=== PATIENT | male | born 1955 | race Caucasian/White ===

== ENCOUNTER 2022-02-22 22:03 | Inpatient (IN) ==
[2022-02-22] MEDS ORDERED: SODIUM CHLORIDE 1,000 ML IV STA (22:44)
--- NOTE | 2022-02-22 23:14 | ED.PDOC ---
General ED Provider: Dr. JUAN J PEDERSON Chief Complaint: Abdominal Pain Stated Complaint: Patient is a 67 year old male who comes to the ER with a 5 day history of abdominal pain and Diarrhea. He was see at [facility] days ago and here yesterday with full work ups done with no acute findings. States he has been having a lot of diarrhea today and feels weak. Time Seen by Provider: 02/22/22 22:12 Mode of Arrival: Wheelchair Information Source: Patient Primary Care Provider: JESSICA BRODERICK Nursing and Triage Documentation Reviewed and Agree: Yes Does patient meet sepsis criteria?: No System Inflammatory Response Syndrome: Pulse >90 BPM Sepsis Protocol: For patient's 13 years and over: Temp is 96.8 and below OR 101 and greater Pulse >90 BPM Resp >20/minute Acutely Altered Mental Status Are patient's symptoms suggestive of a new infection, such as: -Pneumonia -Skin, Soft Tissue -Endocarditis -UTI -Bone, Joint Infection -Implantable Device -Acute Abdominal Infection -Wound Infection -Meningitis -Blood Stream Catheter Infection -Unknown GI Complaint Exam Vomiting/Diarrhea Complaint/Exam Onset/Duration: 5 days Symptoms Are: Still present Episodes of Diarrhea Over Last 24 Hours: 12 Associated Signs and Symptoms: Reports Abdominal pain and Cramping Non-GI Risk Factors: Denies Vomiting due to neuro or Vomiting due to cardiac Surgical Obstruction Risk Factors: Denies Bilious emesis, Projectile emesis, Colicky abdominal pain or Prior abdominal surgery Related Surgical History: Reports Cholecystectomy and Appendectomy Abdominal Findings: Absent Rebound tenderness, Peritoneal signs or McBurney's Point tender Differential Diagnoses: Viral Gastroenteritis Review of Systems Review Of Systems Constitutional: Reports No symptoms Eyes: Reports No symptoms Ears, Nose, Mouth, Throat: Reports No symptoms Respiratory: Reports No symptoms Cardiac: Reports No symptoms GI: Reports Abdominal pain and Diarrhea : Reports No symptoms Musculoskeletal: Reports No symptoms Skin: Reports No symptoms Neurological: Reports Anxiety All Other Systems: Reviewed and Negative [facility] Medical History (Updated 02/23/22 @ 01:33 by JUAN J PEDERSON MD) Arthritis Diabetes HTN (hypertension) Family History (Updated 02/23/22 @ 00:59 by JUAN J PEDERSON MD) Other No pertinent family history Social History (Updated 02/23/22 @ 00:59 by JUAN J PEDERSON MD) Smoking and tobacco status: Never smoker Alcohol intake: never Surgical History (Updated 02/23/22 @ 00:58 by JUAN J PEDERSON MD) Hx of appendectomy Hx of cholecystectomy Physical Exam Physical Exam Appearance: Reports Ill-appearing and Obese Ill-appearing: Moderate Pain Distress: Moderate Eyes: Reports STEPHY, EOMI and Conjunctiva clear ENT: Reports Nose normal and Oropharynx normal Neck: Not Examined Respiratory: Reports Airway patent, Breath sounds clear and Breath sounds equal Cardiovascular: Reports RRR, Pulses normal and No rub GI/: Reports Soft and Tender Musculoskeletal: Reports Normal strength, ROM intact and No edema Skin: Reports Warm, Dry and Normal color Neurological: Reports Motor intact, Alert and Oriented Psychiatric: Reports Anxious Interpretation Radiology Interpretation Radiology Interpretation By: Radiologist Radiology Results: No acute changes (1. No evidence of pulmonary artery throm bus. Borderline technical adequacy. The main and first order branching is relatively well visualized. 2. Mild emphysema 3. Pericolonic inflammation suggested in the upper abdomen. 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 Rate: Tachy Rhythm: Sinus Ectopy: None EKG Interpretation Time of EKG #1: 22:39 Rate: Tachy (119) Rhythm: Sinus Ectopy: None [place]: NL ST Segment: Normal Interpretation: non specific T wave abnormalities Physician Notification Case Discussed Physician Notified: Han Time of Notification: 01:43 (Discussed with DR Broderick who stated should be admitted to the hostpitalist ) Critical Care Note Critical Care Note Total Critical Care Time (mins): 30 Course Course Hematology/Chemistry: 02/22/22 23:04 02/22/22 23:04 Orders, Labs, Meds: Lab Review 02/22/22 02/22/22 02/22/22 23:04 23:04 23:04 WBC 8.74 RBC 5.23 Hgb 15.8 Hct 47.3 MCV 90.4 MCH 30.2 MCHC 33.4 RDW Coeff of Daniel 13.3 Plt Count 189 Immature Gran % (Auto) 1.4 Neut % (Auto) 79.8 H Lymph % (Auto) 7.0 L Travis % (Auto) 11.2 H Eos % (Auto) 0.3 Baso % (Auto) 0.3 Neut # (Auto) 7.0 H Lymph # (Auto) 0.6 Travis # (Auto) 1.0 Eos # (Auto) 0.0 Baso # (Auto) 0.0 Immature Gran # (Auto) 0.1 Puncture Site Base Excess O2 Saturation ABG pH ABG pCO2 ABG pO2 ABG HCO3 ABG Total CO2 Trace Test Hemoglobin Oxyhemoglobin Carboxyhemoglobin Total Hemoglobin FiO2 % Sodium 134.3 L Potassium 4.30 Chloride 102.8 Carbon Dioxide 21.0 L Anion Gap 14.80 BUN 13.7 Creatinine 0.83 Estimated GFR (MDRD) 92.00 BUN/Creatinine Ratio 16.50 Glucose 140.7 H Lactic Acid 1.33 Calcium 9.20 Total Bilirubin 1.49 H AST 134.1 H ALT 153.1 H D Alkaline Phosphatase 246.8 H D Total Creatine Kinase 74.8 Total Protein 7.35 Albumin 3.92 Globulin 3.43 Albumin/Globulin Ratio 1.14 Amylase 131.1 H Lipase 959.7 H Procalcitonin D-Dimer Urine Color Urine Clarity Urine pH Ur Specific [place] Urine Protein Urine Glucose (UA) Urine Ketones Urine Blood Urine Nitrite Urine Bilirubin Urine Urobilinogen Ur Leukocyte Esterase Urine Microscopic RBC Urine Microscopic WBC Ur Squamous Epith Cells Hyaline Casts Urine Mucus Stl C. cayetanensis PCR Stool Rotavirus (PCR) Stool Adenovirus (PCR) Stool Astrovirus (PCR) Stool Campylobacter PCR Stl C.difficile Tox PCR Stool Cryptosporidium PCR Stl E.coli Shiga Tox PCR St Sh/Enteroin Ecoli PCR Stl Enterotoxigenic E PCR Stool EPEC (PCR) Stl E. histolytica PCR Stool Giardia Lamblia PCR Stl P. shigelloides PCR Stool Salmonella PCR Stool Sapovirus (PCR) St Y.enterocolitica PCR Stool Vibrio (PCR) Stl Vibrio cholerae PCR Stl Enteroaggr Ecoli PCR Stl Norovirus GI/GII PCR SARS CoV-2 RNA Rapid LOLI 02/22/22 02/22/22 02/22/22 23:04 23:04 23:05 WBC RBC Hgb Hct MCV MCH MCHC RDW Coeff of Daniel Plt Count Immature Gran % (Auto) Neut % (Auto) Lymph % (Auto) Travis % (Auto) Eos % (Auto) Baso % (Auto) Neut # (Auto) Lymph # (Auto) Travis # (Auto) Eos # (Auto) Baso # (Auto) Immature Gran # (Auto) Puncture Site Base Excess O2 Saturation ABG pH ABG pCO2 ABG pO2 ABG HCO3 ABG Total CO2 Trace Test Hemoglobin Oxyhemoglobin Carboxyhemoglobin Total Hemoglobin FiO2 % Sodium Potassium Chloride Carbon Dioxide Anion Gap BUN Creatinine Estimated GFR (MDRD) BUN/Creatinine Ratio Glucose Lactic Acid Calcium Total Bilirubin AST ALT Alkaline Phosphatase Total Creatine Kinase Total Protein Albumin Globulin Albumin/Globulin Ratio Amylase Lipase Procalcitonin 0.42 H D-Dimer 1588.29 H Urine Color Yellow Urine Clarity Clear Urine pH 5.5 Ur Specific [place] 1.025 Urine Protein Negative Urine Glucose (UA) Negative Urine Ketones Negative Urine Blood Negative Urine Nitrite Negative Urine Bilirubin Negative Urine Urobilinogen 0.2 Ur Leukocyte Esterase Trace H Urine Microscopic RBC 0-2 Urine Microscopic WBC 2-5 Ur Squamous Epith Cells 0-2 Hyaline Casts 0-2 Urine Mucus Trace Stl C. cayetanensis PCR Stool Rotavirus (PCR) Stool Adenovirus (PCR) Stool Astrovirus (PCR) Stool Campylobacter PCR Stl C.difficile Tox PCR Stool Cryptosporidium PCR Stl E.coli Shiga Tox PCR St Sh/Enteroin Ecoli PCR Stl Enterotoxigenic E PCR Stool EPEC (PCR) Stl E. histolytica PCR Stool Giardia Lamblia PCR Stl P. shigelloides PCR Stool Salmonella PCR Stool Sapovirus (PCR) St Y.enterocolitica PCR Stool Vibrio (PCR) Stl Vibrio cholerae PCR Stl Enteroaggr Ecoli PCR Stl Norovirus GI/GII PCR SARS CoV-2 RNA Rapid LOLI 02/22/22 02/22/22 02/22/22 23:05 23:10 23:35 WBC RBC Hgb Hct MCV MCH MCHC RDW Coeff of Daniel Plt Count Immature Gran % (Auto) Neut % (Auto) Lymph % (Auto) Travis % (Auto) Eos % (Auto) Baso % (Auto) Neut # (Auto) Lymph # (Auto) Travis # (Auto) Eos # (Auto) Baso # (Auto) Immature Gran # (Auto) Puncture Site [place] Excess -3.7 L O2 Saturation 92.5 L ABG pH 7.42 ABG pCO2 32.0 L ABG pO2 64.0 L ABG HCO3 20.8 L ABG Total CO2 21.8 Trace Test + Hemoglobin 1.1 Oxyhemoglobin 91.4 L Carboxyhemoglobin 1.1 Total Hemoglobin 15.9 FiO2 % 21.0 Sodium Potassium Chloride Carbon Dioxide Anion Gap BUN Creatinine Estimated GFR (MDRD) BUN/Creatinine Ratio Glucose Lactic Acid Calcium Total Bilirubin AST ALT Alkaline Phosphatase Total Creatine Kinase Total Protein Albumin Globulin Albumin/Globulin Ratio Amylase Lipase Procalcitonin D-Dimer Urine Color Urine Clarity Urine pH Ur Specific [place] Urine Protein Urine Glucose (UA) Urine Ketones Urine Blood Urine Nitrite Urine Bilirubin Urine Urobilinogen Ur Leukocyte Esterase Urine Microscopic RBC Urine Microscopic WBC Ur Squamous Epith Cells Hyaline Casts Urine Mucus Stl C. cayetanensis PCR Not detected Stool Rotavirus (PCR) Not detected Stool Adenovirus (PCR) Not detected Stool Astrovirus (PCR) Not detected Stool Campylobacter PCR Not detected Stl C.difficile Tox PCR Not detected Stool Cryptosporidium PCR Not detected Stl E.coli Shiga Tox PCR Not detected St Sh/Enteroin Ecoli PCR Not detected Stl Enterotoxigenic E PCR Not detected Stool EPEC (PCR) Not detected Stl E. histolytica PCR Not detected Stool Giardia Lamblia PCR Not detected Stl P. shigelloides PCR Not detected Stool Salmonella PCR Detected H Stool Sapovirus (PCR) Not detected St Y.enterocolitica PCR Not detected Stool Vibrio (PCR) Not detected Stl Vibrio cholerae PCR Not detected Stl Enteroaggr Ecoli PCR Not detected Stl Norovirus GI/GII PCR Not detected SARS CoV-2 RNA Rapid LOLI Negative 02/23/22 00:27 WBC RBC Hgb Hct MCV MCH MCHC RDW Coeff of Daniel Plt Count Immature Gran % (Auto) Neut % (Auto) Lymph % (Auto) Travis % (Auto) Eos % (Auto) Baso % (Auto) Neut # (Auto) Lymph # (Auto) Travis # (Auto) Eos # (Auto) Baso # (Auto) Immature Gran # (Auto) Puncture Site Base Excess O2 Saturation ABG pH ABG pCO2 ABG pO2 ABG HCO3 ABG Total CO2 Trace Test Hemoglobin Oxyhemoglobin Carboxyhemoglobin Total Hemoglobin FiO2 % Sodium Potassium Chloride Carbon Dioxide Anion Gap BUN Creatinine Estimated GFR (MDRD) BUN/Creatinine Ratio Glucose Lactic Acid Calcium Total Bilirubin AST ALT Alkaline Phosphatase Total Creatine Kinase Total Protein Albumin Globulin Albumin/Globulin Ratio Amylase 116.1 H Lipase 771.4 H Procalcitonin D-Dimer Urine Color Urine Clarity Urine pH Ur Specific [place] Urine Protein Urine Glucose (UA) Urine Ketones Urine Blood Urine Nitrite Urine Bilirubin Urine Urobilinogen Ur Leukocyte Esterase Urine Microscopic RBC Urine Microscopic WBC Ur Squamous Epith Cells Hyaline Casts Urine Mucus Stl C. cayetanensis PCR Stool Rotavirus (PCR) Stool Adenovirus (PCR) Stool Astrovirus (PCR) Stool Campylobacter PCR Stl C.difficile Tox PCR Stool Cryptosporidium PCR Stl E.coli Shiga Tox PCR St Sh/Enteroin Ecoli PCR Stl Enterotoxigenic E PCR Stool EPEC (PCR) Stl E. histolytica PCR Stool Giardia Lamblia PCR Stl P. shigelloides PCR Stool Salmonella PCR Stool Sapovirus (PCR) St Y.enterocolitica PCR Stool Vibrio (PCR) Stl Vibrio cholerae PCR Stl Enteroaggr Ecoli PCR Stl Norovirus GI/GII PCR SARS CoV-2 RNA Rapid LOLI Orders Category Date Time Status ADMIT PATIENT INPATIENT .TO [facility] (MONITORED BED) ADMISSION 02/23/22 01:33 Active ABG DRAW REQUEST Stat CARDIO 02/22/22 22:44 Completed EKG-(ED ONLY) Stat CARDIO 02/22/22 22:46 Completed ACTIVITY .Up ad Ashley CARE 02/23/22 01:36 Active GIVE HS SNACK 2100 CARE 02/23/22 01:37 Active INTAKE & OUTPUT Q8HR CARE 02/23/22 01:33 Active NPO REMINDER: IMAGING ONCE CARE 02/23/22 00:14 Active TELEMETRY MONITORING TELE CARE 02/23/22 01:33 Active VITAL SIGNS Q4HR CARE 02/23/22 01:36 Active CLEAR LIQUID DIET DIETARY 02/23/22 Breakfast Ordered HS SNACK DIETARY 02/23/22 Dinner Ordered SUPPLEMENT: ENLIVE CLEAR DIETARY 02/23/22 Breakfast Ordered ED IV/MEDIPORT/POWERPORT .ONCE EMERGENCY 02/22/22 22:44 Active ABG COOX Stat LAB 02/22/22 23:10 Completed AMYLASE Stat LAB 02/22/22 23:04 Completed AMYLASE Stat LAB 02/23/22 00:27 Completed BLOOD CULTURE (ED ONLY) Stat LAB 02/22/22 23:04 Received CBC W/ AUTO DIFF DAILY@0600 LAB 02/23/22 06:00 Ordered CBC W/ AUTO DIFF DAILY@0600 LAB 02/24/22 06:00 Ordered CBC W/ AUTO DIFF Stat LAB 02/22/22 23:04 Completed COMPREHENSIVE METABOLIC PANEL DAILY@0600 LAB 02/23/22 06:00 Ordered COMPREHENSIVE METABOLIC PANEL DAILY@0600 LAB 02/24/22 06:00 Ordered COMPREHENSIVE METABOLIC PANEL Stat LAB 02/22/22 23:04 Completed CREATINE KINASE Stat LAB 02/22/22 23:04 Completed D-DIMER Stat LAB 02/22/22 23:04 Completed GASTROINTESTINAL PANEL (PCR) Stat LAB 02/22/22 23:05 Completed LACTIC ACID Stat LAB 02/22/22 23:04 Completed LIPASE Stat LAB 02/22/22 23:04 Completed LIPASE Stat LAB 02/23/22 00:27 Completed PROCALCITONIN Stat LAB 02/22/22 23:04 Completed SARS COV-2 RNA RAPID LOLI Stat LAB 02/22/22 23:35 Completed URINALYSIS C & S IF INDICATED Stat LAB 02/22/22 23:05 Completed 0.9 % Sodium Chloride [Saline Flush] MEDS 02/22/22 22:44 Active 1 syr IVF PRN PRN Acetaminophen [Tylenol] MEDS 02/23/22 01:33 Ordered 650 mg PO Q4H PRN Dicyclomine Inj [Bentyl] MEDS 02/22/22 23:38 Discontinued 20 mg IM ONCE STA Enoxaparin Sodium [Lovenox] MEDS 02/23/22 09:00 Ordered 40 mg SUBCUT DAILY Hydromorphone HCl [Dilaudid 1 mg/ml Syringe] MEDS 02/22/22 23:38 Discontinued 1 mg IVP ONCE STA Hydromorphone HCl [Dilaudid 1 mg/ml Syringe] MEDS 02/23/22 01:18 Discontinued 1 mg IVP ONCE STA Hydromorphone HCl [Dilaudid 1 mg/ml Syringe] MEDS 02/23/22 01:33 Ordered 1 mg IVP Q4HR PRN Levofloxacin [Levaquin] MEDS 02/23/22 02:00 Ordered 500 mg PO QDAC Metoclopramide HCl [Reglan] MEDS 02/23/22 02:00 Ordered 5 mg IVP Q6H Ondansetron HCl/Pf [Zofran 4 mg/2 ml] MEDS 02/23/22 01:33 Ordered 4 mg IVP Q6H PRN Prochlorperazine Edisylate [Compazine] MEDS 02/22/22 23:38 Discontinued 10 mg IVP ONCE ONE Ringers Lactated Solution [Lactated Ringers] 1,000 ml MEDS 02/23/22 00:11 Discontinued IV BOLUS Sodium Chloride 0.9% [Sodium Chloride] 1,000 ml MEDS 02/22/22 22:44 Discontinued IV BOLUS RESUSCITATION STATUS Routine OTHERS 02/23/22 01:[address] CHEST PE PROTOCOL Stat RADS 02/23/22 00:11 Completed Medications Generic Name Dose Route Start Last Admin Trade Name Harvinder PRN Reason Stop Dose Admin Acetaminophen 650 mg 02/23/22 01:33 Acetaminophen 325 Mg Tablet PO Q4H PRN Fever and Mild Pain Enoxaparin Sodium 40 mg 02/23/22 09:00 Enoxaparin Sodium 40 Mg/0.4 Ml Syr SUBCUT DAILY TIMOTHY Hydromorphone HCl 1 mg 02/23/22 01:33 Hydromorphone Hcl 1 Mg/Ml Syringe IVP Q4HR PRN Severe Pain Levofloxacin 500 mg 02/23/22 02:00 Levofloxacin 500 Mg Tablet PO 02/26/22 01:59 QDAC TIMOTHY Metoclopramide HCl 5 mg 02/23/22 02:00 Metoclopramide Hcl 10 Mg/2 Ml IVP Q6H TIMOTHY Ondansetron HCl 4 mg 02/23/22 01:33 Ondansetron Hcl/Pf 4 Mg/2 Ml Sdv IVP Q6H PRN Nausea / Vomiting Pantoprazole Sodium 40 mg 02/23/22 09:00 Pantoprazole Sodium 40 Mg Vial IVP DAILY [facility] Sodium Chloride 1 syr 02/22/22 22:44 0.9% Sodium Chloride 10 Ml Disp.Syrin IVF PRN PRN To flush IV Discontinued Medications Generic Name Dose Route Start Last Admin Trade Name Harvinder PRN Reason Stop Dose Admin Dicyclomine HCl 20 mg 02/22/22 23:38 02/22/22 23:42 Dicyclomine Inj 20 Mg/2 Ml Ampul IM 02/22/22 23:39 20 mg ONCE STA Administration Hydromorphone HCl 1 mg 02/22/22 23:38 02/22/22 23:42 Hydromorphone Hcl 1 Mg/Ml Syringe IVP 02/22/22 23:39 1 mg ONCE STA Administration Hydromorphone HCl 1 mg 02/23/22 01:18 02/23/22 01:30 Hydromorphone Hcl 1 Mg/Ml Syringe IVP 02/23/22 01:19 1 mg ONCE STA Administration Sodium Chloride 1,000 mls @ 1,000 mls/hr 02/22/22 22:44 02/22/22 23:06 Sodium Chloride IV 02/22/22 23:43 1,000 mls/hr BOLUS STA Administration Lactated Ringer's 1,000 mls @ 1,000 mls/hr 02/23/22 00:11 02/23/22 00:42 Lactated Ringers IV 02/23/22 01:10 1,000 mls/hr BOLUS STA Administration Prochlorperazine Edisylate 10 mg 02/22/22 23:38 02/22/22 23:42 Prochlorperazine Edisylate 10 Mg/2 Ml Sdv IVP 02/22/22 23:39 10 mg ONCE ONE Administration Vital Signs: Temp Pulse Resp BP Pulse Ox 02/22/22 22:04 99.3 F 117 H 26 H 116/73 94 L Discharge Plan Discharge Patient Disposition: ADMITTED INPATIENT Discharge Problem: Salmonella enteritis Acute pancreatitis Qualifiers: Pancreatitis type: idiopathic Acute pancreatitis complication: no infection or necrosis Qualified Code(s): K85.00 - Idiopathic acute pancreatitis without necrosis or infection Did you review [place] ANESTHESIA ATTENDING?: Not Applicable ED Provider: JUAN J PEDERSON Condition: Fair Physician Progress Note: []
[2022-02-22 23:15] LABS: ABG O2 HGB 91.4 % (95-100); ABG PH 7.42 (7.35-7.45); BEecf -3.7 (-2.0-3.0); COHb 1.1 (0.5-1.5); HCO3 20.8 (21-28); MetHb 1.1 (0-1.5); TCO2 21.8 (19-24); sO2 92.5 % (94-98); tHb 15.9 g/dl (11.7-17.4)
[2022-02-22 23:18] LABS: BASOPHILS % (AUTO) 0.3 % (0.0-3.0); EOSINOPHILS % (AUTO) 0.3 % (0.0-7.0); HEMATOCRIT 47.3 % (42.0-52.0); HEMOGLOBIN 15.8 g/dl (14.0-18.0); IMMATURE GRANULOCYTE # (AUTO) 0.1 (0.0-1.0); IMMATURE GRANULOCYTE % (AUTO) 1.4 % (0.0-5.0); LYMPHOCYTES # (AUTO) 0.6 K/uL (0.60-3.4); MEAN CORPUSCULAR HEMOGLOBIN 30.2 pg (27.0-31.0); MEAN CORPUSCULAR HGB CONC 33.4 (31.8-35.4); MEAN CORPUSCULAR VOLUME 90.4 fl (80.0-94.0); MONOCYTES % (AUTO) 11.2 (0-10); NEUTROPHILS % (AUTO) 79.8 % (42.2-75.2); PLATELET COUNT 189 10^3/uL (140-440); RDW COEFFICIENT OF VARIATION 13.3 % (11.6-14.8); RED BLOOD COUNT 5.23 10^6/ul (4.70-6.10); WHITE BLOOD COUNT 8.74 K/ul (4.2-10.2)
[2022-02-22 23:21] LABS: BILIRUBIN,URINE Negative (NEGATIVE); CLARITY,URINE Clear (CLEAR); COLOR,URINE Yellow (YELLOW); GLUCOSE, URINE (UA) Negative (NEGATIVE); KETONES,URINE Negative (NEGATIVE); LEUKOCYTE ESTERASE ,URINE Trace (NEGATIVE); NITRITE,URINE Negative (NEGATIVE); PH,URINE 5.5 (5-9); PROTEIN,URINE Negative (NEGATIVE); URINE, BLOOD Negative (NEGATIVE); UROBILINOGEN,URINE 0.2 (0.2)
[2022-02-22 23:31] LABS: ALANINE AMINOTRANSFERASE 153.1 U/L (0-50); ALBUMIN 3.92 g/dL (3.5-5.0); ALKALINE PHOSPHATASE 246.8 U/L (56-119); AMYLASE 131.1 U/L (30-110); ASPARTATE AMINO TRANSFERASE 134.1 U/L (17-59); BILIRUBIN,TOTAL 1.49 mg/dL (0.2-1.3); BLOOD UREA NITROGEN 13.7 mg/dL (9-20); CALCIUM 9.2 mg/dL (8.4-10.2); CHLORIDE 102.8 mmol/L (98-107); CREATINE KINASE 74.8 U/L (55-170); CREATININE 0.83 mg/dL (0.60-1.10); GLUCOSE 140.7 mg/dL (74-106); LIPASE 959.7 U/L (23-300); POTASSIUM 4.3 mmol/L (3.5-5.1); SODIUM 134.3 mmol/L (134.5-145); TOTAL PROTEIN 7.35 g/dL (6.3-8.2)
[2022-02-22 23:33] LABS: ADENOVIRUS F40/41 (PCR) NOT DETECTED (NOT DETECT); ASTROVIRUS (PCR) NOT DETECTED (NOT DETECT); CAMPYLOBACTER (PCR) NOT DETECTED (NOT DETECT); CRYPTOSPORIDIUM (PCR) NOT DETECTED (NOT DETECT); CYCLOSPORA CAYETANENSIS (PCR) NOT DETECTED (NOT DETECT); ENTAMOEBA HISTOLYTICA (PCR) NOT DETECTED (NOT DETECT); ENTEROAGGREGATIVE E.COLI (PCR) NOT DETECTED (NOT DETECT); GIARDIA LAMBLIA (PCR) NOT DETECTED (NOT DETECT); HYALINE CASTS, URINE 0-2 (NOT PRESENT); MUCUS,URINE TRACE (NOT PRESENT); NOROVIRUS GI/GII (PCR) NOT DETECTED (NOT DETECT); PLESIOMONAS SHIGELLOIDES (PCR) NOT DETECTED (NOT DETECT); ROTAVIRUS A (PCR) NOT DETECTED (NOT DETECT); SAPOVIRUS (PCR) NOT DETECTED (NOT DETECT); SHIGA-LIKE TOXIN E.COLI (PCR) NOT DETECTED (NOT DETECT); SQUAMOUS EPITHELIAL CELL,UR 0-2 (0-5); URINE RBC, MICROSCOPIC 0-2 (0-2); VIBRIO (PCR) NOT DETECTED (NOT DETECT); VIBRIO CHOLERAE (PCR) NOT DETECTED (NOT DETECT); YERSINIA ENTEROCOLITICA (PCR) NOT DETECTED (NOT DETECT)
[2022-02-22] MEDS ORDERED: COMPAZINE IVP ONE (23:38)
[2022-02-22] MEDS ORDERED: BENTYL IM STA (23:38)
[2022-02-22] MEDS ORDERED: DILAUDID 1 MG/ML SYRINGE IVP STA (23:38)
[2022-02-23] MEDS ORDERED: LACTATED RINGERS 1,000 ML IV STA (00:11)
[2022-02-23 00:31] LABS: AMYLASE 116.1 U/L (30-110); LIPASE 771.4 U/L (23-300)
[2022-02-23 00:40] LABS: C DIFF A/B (PCR) NOT DETECTED (NOT DETECT); SALMONELLA(PCR) DETECTED (NOT DETECT)
--- NOTE | 2022-02-23 01:05 | CT ---
Exam: CT angiography of the chest History: Shortness of breath and elevated D-dimer Technique: 2.[address] of the chest utilizing CT angiography protocol. Multiplanar and m aximum intensity projection reformations were performed. FINDINGS: Borderline technical adequacy for evaluation of pulmonary arteries and aorta secondary to bolus timing. There are no pulmonary artery filling defects. Mild apical emphysema. The lungs are clear otherwise. Granulomatous lymph node calcifications of mediastinum. Coronary artery calcificat ions are present. The aorta is normal. No acute chest wall abnormality. Possible pericolonic infla mmation seen in the upper abdomen. Impression: 1. No evidence of pulmonary artery thrombus. Borderline technical adequacy. The main and first ord er branching is relatively well visualized. 2. Mild emphysema 3. Pericolonic inflammation suggested in the upper abdomen. All CT scans are performed using dose optimization techniques as appropriate to the performed exam an d include at least one of the following: Automated exposure control, adjustment of the mA and/or kV according t o size, and the use of iterative reconstruction technique.
[2022-02-23] MEDS ORDERED: DILAUDID 1 MG/ML SYRINGE IVP STA (01:18)
[2022-02-23] MEDS ORDERED: DILAUDID 1 MG/ML SYRINGE IVP PRN (01:33)
[2022-02-23] MEDS ORDERED: TYLENOL PO PRN (01:33)
[2022-02-23 02:30] VITALS: BMI 41.6
[2022-02-23] MEDS: LEVAQUIN PO SCH ×2 (02:50→05:36)
[2022-02-23] MEDS: REGLAN IVP SCH ×4 (02:50→21:11)
[2022-02-23] MEDS: SODIUM CHLORIDE 1,000 ML IV SCH ×4 (03:39→21:58)
[2022-02-23 05:01] LABS: BASOPHILS % (AUTO) 0.3 % (0.0-3.0); HEMATOCRIT 45.1 % (42.0-52.0); HEMOGLOBIN 14.8 g/dl (14.0-18.0); IMMATURE GRANULOCYTE # (AUTO) 0.1 (0.0-1.0); IMMATURE GRANULOCYTE % (AUTO) 1.2 % (0.0-5.0); LYMPHOCYTES # (AUTO) 0.8 K/uL (0.60-3.4); LYMPHOCYTES % (AUTO) 7.6 (10.0-50.0); MEAN CORPUSCULAR HEMOGLOBIN 29.7 pg (27.0-31.0); MEAN CORPUSCULAR HGB CONC 32.8 (31.8-35.4); MEAN CORPUSCULAR VOLUME 90.4 fl (80.0-94.0); MONOCYTES % (AUTO) 9.3 (0-10); NEUTROPHILS # (AUTO) 8.6 K/ul (2.0-6.9); NEUTROPHILS % (AUTO) 81.6 % (42.2-75.2); PLATELET COUNT 199 10^3/uL (140-440); RDW COEFFICIENT OF VARIATION 13.4 % (11.6-14.8); RED BLOOD COUNT 4.99 10^6/ul (4.70-6.10); WHITE BLOOD COUNT 10.58 K/ul (4.2-10.2)
[2022-02-23 05:13] LABS: ALANINE AMINOTRANSFERASE 134.3 U/L (0-50); ALBUMIN 3.66 g/dL (3.5-5.0); ASPARTATE AMINO TRANSFERASE 95.8 U/L (17-59); BILIRUBIN,TOTAL 1.16 mg/dL (0.2-1.3); BLOOD UREA NITROGEN 12.4 mg/dL (9-20); CALCIUM 8.58 mg/dL (8.4-10.2); CARBON DIOXIDE 22.1 mmol/L (22-30.0); CHLORIDE 102.5 mmol/L (98-107); CREATININE 0.9 mg/dL (0.60-1.10); GLUCOSE 138.4 mg/dL (74-106); POTASSIUM 4.3 mmol/L (3.5-5.1); TOTAL PROTEIN 6.86 g/dL (6.3-8.2)
[2022-02-23] MEDS: ZOFRAN 4 MG/2 ML IVP PRN ×2 (07:39→13:13)
[2022-02-23] MEDS: LOVENOX SUBCUT SCH (08:38)
[2022-02-23] MEDS: PROTONIX IV IVP SCH (08:38)
[2022-02-23] MEDS ORDERED: PHENERGAN 25 MG/ML VIAL IM ONE (09:13)
--- NOTE | 2022-02-23 09:24 | US ---
EXAM: ULTRASOUND OF THE RIGHT UPPER QUADRANT (LIMITED ABDOMEN) HISTORY: Right upper quadrant pain. Vomiting. TECHNIQUE: Sonography of the right upper quadrant was performed. Color Doppler imaging of the portal vein was performed. Images were obtained and stored in a permanent archive. COMPARISON: CT abdomen pelvis 02/21/2022. FINDINGS: Pancreas: Obscured by bowel gas shadowing.. Liver: Diffusely hyper echogenic parenchyma. Normal surface contour. No lesions. - Main portal vein: Normal hepatopetal flow. Biliary: Post cholecystectomy. Common bile duct was obscured. Right Kidney: No mass, calculus, or hydronephrosis. Aorta: Obscured. IVC: Obscured. Other: No ascites. IMPRESSION: Hyper echogenic liver consistent with steatosis.
--- NOTE | 2022-02-23 10:06 | PCM.PROG ---
Date Seen by Provider: 02/23/22 Time Seen by Provider: 10:02 Subjective: continued nausea, despite zofran and reglan, pt denies alcoholic hx, attempting clear diet Objective: Vitals: T=98.1 F, P=135, R=20, IW=957/76, SPO2=93 HEENT: []conjunctiva clear Neck: []supple Lungs: [] clear CVS: []tachycardia Abdomen: []tender but no rebound Extremities: []scarlett Neurological: []alert Skin: []pink Lab/Tests/Diagnostic Imaging: [] ekg: st 110 no stemi, lipase 771 (1) Acute pancreatitis: Status: Acute Code(s): K85.90 - Acute pancreatitis without necrosis or infection, unspecified SNOMED Code(s): 815777903 (2) Salmonella enteritis: Status: Acute Code(s): A02.0 - Salmonella enteritis SNOMED Code(s): 25059779 (3) Acute diarrhea: Status: Acute Code(s): R19.7 - Diarrhea, unspecified SNOMED Code(s): 694071985 Plan: Dr Short consult for tachycardia, check troponin, continue flagyl and levaquin care to Dr Aceves at 19:00
[2022-02-23] MEDS ORDERED: DECADRON IM ONE (12:33)
[2022-02-23] MEDS ORDERED: LASIX IVP ONE (12:33)
[2022-02-23] MEDS ORDERED: CARDIZEM PO ONE (12:52)
[2022-02-24] MEDS: REGLAN IVP SCH ×4 (02:18→20:47)
[2022-02-24] MEDS: SODIUM CHLORIDE 1,000 ML IV SCH ×3 (04:29→12:27)
[2022-02-24 05:01] LABS: BASOPHILS % (AUTO) 0.4 % (0.0-3.0); EOSINOPHILS % (AUTO) 0.3 % (0.0-7.0); HEMATOCRIT 39.6 % (42.0-52.0); HEMOGLOBIN 13.4 g/dl (14.0-18.0); IMMATURE GRANULOCYTE # (AUTO) 0.1 (0.0-1.0); IMMATURE GRANULOCYTE % (AUTO) 1.1 % (0.0-5.0); LYMPHOCYTES # (AUTO) 1.4 K/uL (0.60-3.4); MEAN CORPUSCULAR HEMOGLOBIN 30.2 pg (27.0-31.0); MEAN CORPUSCULAR HGB CONC 33.8 (31.8-35.4); MEAN CORPUSCULAR VOLUME 89.4 fl (80.0-94.0); MONOCYTES # (AUTO) 0.9 K/uL (0.4-2.0); NEUTROPHILS # (AUTO) 4.6 K/ul (2.0-6.9); NEUTROPHILS % (AUTO) 65.2 % (42.2-75.2); PLATELET COUNT 182 10^3/uL (140-440); RDW COEFFICIENT OF VARIATION 13.5 % (11.6-14.8); RED BLOOD COUNT 4.43 10^6/ul (4.70-6.10); WHITE BLOOD COUNT 6.99 K/ul (4.2-10.2)
[2022-02-24 05:15] LABS: ALANINE AMINOTRANSFERASE 84.6 U/L (0-50); ALBUMIN 3.02 g/dL (3.5-5.0); ALKALINE PHOSPHATASE 131.6 U/L (56-119); ASPARTATE AMINO TRANSFERASE 47.4 U/L (17-59); BILIRUBIN,TOTAL 0.67 mg/dL (0.2-1.3); BLOOD UREA NITROGEN 11.1 mg/dL (9-20); CALCIUM 8.08 mg/dL (8.4-10.2); CARBON DIOXIDE 22.7 mmol/L (22-30.0); CHLORIDE 104.2 mmol/L (98-107); CREATININE 0.79 mg/dL (0.60-1.10); GLUCOSE 141.8 mg/dL (74-106); POTASSIUM 3.81 mmol/L (3.5-5.1); SODIUM 134.6 mmol/L (134.5-145); TOTAL PROTEIN 6.01 g/dL (6.3-8.2)
[2022-02-24] MEDS: LEVAQUIN PO SCH (05:33)
[2022-02-24] MEDS: LOVENOX SUBCUT SCH (08:38)
[2022-02-24] MEDS: CARDIZEM PO SCH ×2 (08:43→20:09)
--- NOTE | 2022-02-24 09:23 | PCM.PROG ---
Attending Provider: ATTENDING PROVIDER: Dr. JUAN J PEDERSON This patient is seen with Elham Dial, Nurse Practitioner. DATE OF SERVICE: 02/24/22 SUBJECTIVE: This 67 year old /WHITE M was hospitalized 02/23/22. No diarrhea since last night. Fever yesterday, none through the night. Tolerated chicken broth. Denies abdominal pain or blood in the stool. Labs are improving. REVIEW OF SYSTEMS: CONSTITUTIONAL: No night sweats. Fatigue. No fever or chills. HEENT: Eyes: No visual changes. No eye pain. No eye discharge. ENT: No runny nose. No epistaxis. No sinus pain. No odynophagia. No congestion. RESPIRATORY: No cough, no congestion. No hemoptysis. No shortness of breath. CARDIOVASCULAR: No angina symptoms. No CHF symptoms. No atypical chest pain for CAD. No palpitations. No orthopnea.. GASTROINTESTINAL: No abdominal pain. Nausea. Diarrhea. No hematemesis. No hematochezia. GENITOURINARY: No urgency. No frequency. No dysuria. No hematuria. No obstructive symptoms. No discharge. No pain. No significant abnormal bleeding. MUSCULOSKELETAL: No musculoskeletal pain; no joint swelling. NEUROLOGICAL: Awake, alert, oriented to time, place and person. No headache. No neck pain. No syncope. No seizures. No dizziness. PSYCHIATRIC: Not anxious. No depression. No suicidal thoughts. No homicidal thoughts. SKIN: No rash. No lesions. No wounds. ENDOCRINE: No unexplained weight loss. No weight gain. HEMATOLOGIC/LYMPHATIC: No anemia. No purpura. No petechiae. No prolonged or excessive bleeding. No palpable lymph nodes. PHYSICAL EXAMINATION: GENERAL: The patient is awake, alert and oriented, lying in bed in no distress. VITAL SIGNS: Temperature 97.5 F, Pulse 74, Respiratory Rate 18, BP 108/73, Pulse Ox 95% HEENT: Head normocephalic, atraumatic. Eyes: Extraocular muscles are intact. Pupils are equal, round and reactive to light and accommodation. Ears: No lesions. Nose appeared normal. Throat: No exudate or erythema. NECK: Supple. No JVD, no carotid bruit. No lymphadenopathy or thyromegaly. LUNGS: Diminished breath sounds. Clear to auscultation. Percussion note normal. Chest symmetrical. HEART: S1, S2, no S3. No murmurs. No cyanosis or clubbing. No ascites. Pulses: Dorsalis pedis and posterior tibial pulses +1 to +2 both sides. ABDOMEN: Soft. Non-tender. Bowel sounds active. No CVA tenderness. No mass felt. EXTREMITIES: No edema. Full range of motion of all extremities, equal. NEUROLOGIC: No focal deficit. Cranial nerves II through XII are grossly intact. No headache. No double vision. SKIN: Not dry. Intact. Turgor-normal. LYMPHATIC: No palpable lymph nodes/no lymphedema. MUSCULOSKELETAL: Normal joints with no swelling. Muscle tone is normal. LAB REVIEW: 02/24/22 04:49 02/24/22 04:49 02/24/22 04:49: Sodium 134.6, Potassium 3.81, Chloride 104.2, Carbon Dioxide 22.7, Anion Gap 11.51, BUN 11.1, Creatinine 0.79, Estimated GFR (MDRD) 98.00, BUN/Creatinine Ratio 14.05, Glucose 141.8 H, Calcium 8.08 L, Total Bilirubin 0.67, AST 47.4 D, ALT 84.6 H D, Alkaline Phosphatase 131.6 H D, Total Protein 6.01 L, Albumin 3.02 L, Globulin 2.99, Albumin/Globulin Ratio 1.01 02/24/22 04:49: WBC 6.99, RBC 4.43 L, Hgb 13.4 L, Hct 39.6 L, MCV 89.4, MCH 30.2, MCHC 33.8, RDW Coeff of Daniel 13.5, Plt Count 182, Immature Gran % (Auto) 1.1, Neut % (Auto) 65.2, Lymph % (Auto) 20.0, [place] % (Auto) 13.0 H, Eos % (Auto) 0.3, Baso % (Auto) 0.4, Neut # (Auto) 4.6, Lymph # (Auto) 1.4, [place] # (Auto) 0.9, Eos # (Auto) 0.0, Baso # (Auto) 0.0, Immature Gran # (Auto) 0.1 02/23/22 04:46: NT-Pro-B Natriuret Pep 102.000 02/23/22 04:46: Troponin I < 0.012 ASSESSMENT: Please see below. 1. Acute gastroenteritis, positive Salmonella 2. Acute pancreatitis 3. Obesity PLAN: 1. Decrease IV fluids 83cc an hour 2. Continue antibiotics 3. Continue Cardizem 60mg BID Plan and coordination of the patient's care discussed in the presence of Ordering Machine Operator and nurse. SCRIBED BY: Artie SPARKS scribed while in presence of service performed by Dr. Short/Elham Dial APRN on 02/24/22 ([id number])
[2022-02-24] MEDS: PROTONIX IV IVP SCH (09:32)
--- NOTE | 2022-02-24 11:12 | PCM.PROG ---
Date Seen by Provider: 02/24/22 Time Seen by Provider: 11:10 Subjective: pt improving, asking for less pain meds, no emesis, tolerating clear liquids Objective: Vitals: T=97.5 F, P=74, R=18, ER=282/73, SPO2=95 HEENT: []conjunctiva clear Neck: []supple Lungs: [] clear CVS: []RRR Abdomen: []soft and nontender Extremities: []scarlett Neurological: []alert Skin: []pink Lab/Tests/Diagnostic Imaging: [] Plan: advance to soft diet, check am labs, discharge tomorrow care to Dr Aceves at 19:00
[2022-02-25] MEDS: SODIUM CHLORIDE 1,000 ML IV SCH ×2 (00:17→08:30)
[2022-02-25] MEDS: REGLAN IVP SCH ×2 (02:35→10:27)
[2022-02-25 05:09] VITALS: BP 98/64; TEMP 98.1
[2022-02-25 05:21] LABS: BASOPHILS % (AUTO) 0.5 % (0.0-3.0); EOSINOPHILS # (AUTO) 0.1 K/ul (0.0-0.7); EOSINOPHILS % (AUTO) 0.8 % (0.0-7.0); HEMATOCRIT 40.3 % (42.0-52.0); HEMOGLOBIN 13.4 g/dl (14.0-18.0); IMMATURE GRANULOCYTE # (AUTO) 0.2 (0.0-1.0); IMMATURE GRANULOCYTE % (AUTO) 1.8 % (0.0-5.0); LYMPHOCYTES % (AUTO) 23.6 (10.0-50.0); MEAN CORPUSCULAR HEMOGLOBIN 30.2 pg (27.0-31.0); MEAN CORPUSCULAR HGB CONC 33.3 (31.8-35.4); MONOCYTES # (AUTO) 0.6 K/uL (0.4-2.0); MONOCYTES % (AUTO) 7.1 (0-10); NEUTROPHILS # (AUTO) 5.6 K/ul (2.0-6.9); NEUTROPHILS % (AUTO) 66.2 % (42.2-75.2); PLATELET COUNT 219 10^3/uL (140-440); RDW COEFFICIENT OF VARIATION 13.7 % (11.6-14.8); RED BLOOD COUNT 4.43 10^6/ul (4.70-6.10); WHITE BLOOD COUNT 8.48 K/ul (4.2-10.2)
[2022-02-25 05:40] LABS: ALANINE AMINOTRANSFERASE 78.5 U/L (0-50); ALBUMIN 3.01 g/dL (3.5-5.0); ALKALINE PHOSPHATASE 128.7 U/L (56-119); AMYLASE 54.5 U/L (30-110); ASPARTATE AMINO TRANSFERASE 53.3 U/L (17-59); BILIRUBIN,TOTAL 0.5 mg/dL (0.2-1.3); BLOOD UREA NITROGEN 13.6 mg/dL (9-20); CALCIUM 8.06 mg/dL (8.4-10.2); CARBON DIOXIDE 21.3 mmol/L (22-30.0); CHLORIDE 108.3 mmol/L (98-107); CREATININE 0.82 mg/dL (0.60-1.10); GLUCOSE 97.3 mg/dL (74-106); LIPASE 314.8 U/L (23-300); POTASSIUM 3.79 mmol/L (3.5-5.1); SODIUM 137.2 mmol/L (134.5-145); TOTAL PROTEIN 5.96 g/dL (6.3-8.2)
[2022-02-25] MEDS: LEVAQUIN PO SCH (05:45)
[2022-02-25] MEDS: LOVENOX SUBCUT SCH (09:53)
[2022-02-25] MEDS: CARDIZEM PO SCH (09:53)
[2022-02-25] MEDS: PROTONIX IV IVP SCH (10:27)
--- NOTE | 2022-02-25 11:41 | CONS ---
DATE OF CONSULTATION: 02/23/22 REASON FOR CONSULTATION: Sinus tachycardia HISTORY OF PRESENT ILLNESS: 67 year old white male hospitalized with gastroenteritis, salmonellosis and possibility of pancreatitis. The patient has been sick for past 7-10 days. He was seen at [facility] ER again at [facility] two days prior to hospitalization. The patient had similar complaints this time on 02/23/22 in the morning when he was seen the patient had elevated lipase and salmonellosis from GI panel. He came to the emergency room because he was feeling weak, tired and continued to have diarrhea. REVIEW OF SYSTEMS: CONSTITUTIONAL: No night sweats. No fever or chills. Weak, tired and fatigue. HEENT: Eyes: No visual changes. No eye pain. No eye discharge. ENT: No sinus drainage. No epistaxis. No sinus pain. No sore throat. No odynophagia. No ear pain. No congestion. RESPIRATORY: No cough, no congestion. No hemoptysis. Shortness of breath practically no energy. CARDIOVASCULAR: No angina symptoms. No CHF symptoms. No atypical chest pain for CAD. No palpitations. No orthopnea. GASTROINTESTINAL: No abdominal pain. Nausea, diarrhea. No hematemesis. No hematochezia. GENITOURINARY: No urgency. No frequency. No dysuria. No hematuria. No obstructive symptoms. No discharge. No pain. No significant abnormal bleeding. MUSCULOSKELETAL: No musculoskeletal pain. No joint swelling. NEUROLOGICAL: No headache. No neck pain. No syncope. No seizures. No dizziness. PSYCHIATRIC: Not anxious. No depression. No suicidal thoughts. No homicidal thoughts. SKIN: No rash. No lesions. No wounds. ENDOCRINE: No unexplained weight loss. No weight gain. HEMATOLOGIC/LYMPHATIC: No anemia. No purpura. No petechiae. No prolonged or excessive bleeding. No palpable lymph nodes. MEDICATIONS: Lisinopril 40mg twice a day ALLERGIES: None PAST MEDICAL HISTORY/PAST SURGICAL HISTORY: The patient morbid obesity History consistent with sleep apnea Generalized osteoarthritis Hypertension Dyslipidemia SOCIAL/PERSONAL/FAMILY HISTORY: The patient lives by himself. He is a single man, retired. He does all activity as daily living. PHYSICAL EXAMINATION: GENERAL: The patient is oriented time, place and person. VITAL SIGNS: Temperature 98.1, pulse 120, respiratory rate 20, blood pressure 130/76 and pulse ox 93% on room air. HEENT: Head normocephalic, atraumatic. Eyes: Extraocular muscles are intact. Pupils are equal, round and reactive to light and accommodation. Ears: No lesions. Nose appeared normal. Throat: No exudate or erythema. NECK: Supple. No JVD, no carotid bruit. No lymphadenopathy or thyromegaly. LUNGS: Decreased breath sounds. Clear to auscultation. Percussion note normal. Chest symmetrical. HEART: S1, S2 distant, no S3. No murmurs. No cyanosis or clubbing. No ascites. Pulses: Dorsalis pedis and posterior tibial pulses +1 to +2 bilaterally. ABDOMEN: Soft. Protuberant. Mildly tender in left upper quadrant. Bowel sounds hyperactive. No CVA tenderness. No mass felt. No rebound tenderness. EXTREMITIES: Trace edema. Full range of motion of all extremities, equal. NEUROLOGIC: No focal deficit. Cranial nerves II through XII are grossly intact. No headache, no double vision or headache. SKIN: Not dry. Intact. Turgor - normal. LYMPHATIC: No palpable lymph nodes/no lymphedema. MUSCULOSKELETAL: Normal joints with no swelling. Muscle tone is normal. LABS: hgb 14, hct 45, WBC 10,000 normal differential, creatinine 0.9, BUN 12, potassium 4.3. Blood gasses pH 7.42 with pO2 64, pCo2 32, Oxygen saturation of 92%. Troponin negative. D-Dimer elevated the same as it has been elevated even at [facility] ER. Had full workup at [facility] with pulmonary angiogram, chest angiogram which was negative. Lipase 959, Amylase 131, lipase done from the previous staple was approximately 700. Liver enzymes ALT 153, AST 134. Bilirubin 1.49, GI panel showed Salmonella. EKG sinus tachycardia. No acute changes. ASSESSMENT: 1. Sinus tachycardia etiology multifactorial like dehydration, Gastroenteritis, Salmonellosis, Pancreatitis 2. Pancreatitis, mild 3. Gastroenteritis, salmonellosis with diarrhea 4. Morbid obesity 5. Chronic lung disease 6. History of hypertension RECOMMENDATIONS: 1. The patient's sinus tachycardia is multifactorial 2. The patient has been given IV fluids. evidence of fluid overload possible. We will give Lasix 20mg IV 3. The patient has sedentary lifestyle. He is morbidly obese. He has been sick for past 7-10 days with practically very poor oral intake with diarrhea and abdominal discomfort with nausea triggering to patients sinus tachycardia 4. We will do echocardiogram once the patient's heart rate slows down below 100 to evaluate LV function 5. Agreed with Levaquin for Salmonellosis 6. We will given 0.5cc Decadron and Lasix 20mg IV just one time. 7. Educated the patient about his medical problems and advised hygiene and hand washing for now. The patient's relatives were also made aware of Salmonellosis ADDENDUM: Later on I acquired into the patient's care in the evening, the patient's heart rate was between 90-100. He was feeling a lot better. Nausea had subsided. CONDITION: Improving. Thanks for referral. Will follow. TALA
--- NOTE | 2022-02-25 11:54 | PCM.DC ---
Final Diagnosis: Salmonella enteritis Acute pancreatitis Sinus tachycardia Date of admit - 02/22/2022 Date of discharge - 02/25/2022 Physical Exam Appearance: Well-appearing and Obese Ill-appearing: None Pain Distress: None Eyes: STEPHY ENT: Oropharynx normal Neck: Supple Respiratory: Airway patent and Breath sounds clear Cardiovascular: RRR and Pulses normal GI/: Soft and Nontender Musculoskeletal: Normal strength and ROM intact Neurological: Sensation intact and Motor intact Psychiatric: Affect appropriate and Mood appropriate (1) Salmonella enteritis: Status: Acute Code(s): A02.0 - Salmonella enteritis SNOMED Code(s): 11204337 (2) Acute pancreatitis: Status: Acute Code(s): K85.90 - Acute pancreatitis without necrosis or infection, unspecified SNOMED Code(s): 896915491 Qualifiers: Acute pancreatitis complication: no infection or necrosis Pancreatitis type: idiopathic Qualified Code(s): K85.00 - Idiopathic acute pancreatitis without necrosis or infection (3) Sinus tachycardia: Status: Acute Code(s): R00.0 - Tachycardia, unspecified SNOMED Code(s): 76586304 Reason for Hospitalization: Admit with about a week hx of abdominal pain, cramping, diarrhea. Had been seen at other ER, and here twice, before stool testing revealed salmonella infection. Developed signs of a pancreatitis as well. Admitted for IV abx and other med. Prognosis/Condition at Discharge: Good. Stable. Medications at Discharge: Medications at Discharge (Home Meds & RX) alprazolam 0.5 mg tablet 0.5 mg PO BID 02/23/22 colchicine 0.6 mg tablet 0.6 mg PO TID 02/23/22 indomethacin 25 mg capsule 25 mg PO TID 02/23/22 metformin 500 mg tablet 500 mg PO BIDWMEAL 02/23/22 oxycodone-acetaminophen 10 mg-325 mg tablet 1 tab PO Q6H PRN Moderate to severe pain 02/23/22 diltiazem HCl 60 mg tablet 30 mg PO Q12HR #60 tabs 02/25/22 levofloxacin 500 mg tablet 500 mg PO QDAC 4 days #4 tabs 02/25/22 Lab/Diagnostics: Laboratory Tests 02/22/22 02/22/22 02/22/22 23:04 23:04 23:04 WBC 8.74 RBC 5.23 Hgb 15.8 Hct 47.3 MCV 90.4 MCH 30.2 MCHC 33.4 RDW Coeff of Daniel 13.3 Plt Count 189 Immature Gran % (Auto) 1.4 Neut % (Auto) 79.8 H Lymph % (Auto) 7.0 L [place] % (Auto) 11.2 H Eos % (Auto) 0.3 Baso % (Auto) 0.3 Neut # (Auto) 7.0 H Lymph # (Auto) 0.6 [place] # (Auto) 1.0 Eos # (Auto) 0.0 Baso # (Auto) 0.0 Immature Gran # (Auto) 0.1 Puncture Site Base Excess O2 Saturation ABG pH ABG pCO2 ABG pO2 ABG HCO3 ABG Total CO2 Trace Test Hemoglobin Oxyhemoglobin Carboxyhemoglobin Total Hemoglobin FiO2 % Sodium 134.3 L Potassium 4.30 Chloride 102.8 Carbon Dioxide 21.0 L Anion Gap 14.80 BUN 13.7 Creatinine 0.83 Estimated GFR (MDRD) 92.00 BUN/Creatinine Ratio 16.50 Glucose 140.7 H Lactic Acid 1.33 Calcium 9.20 Total Bilirubin 1.49 H AST 134.1 H ALT 153.1 H D Alkaline Phosphatase 246.8 H D Total Creatine Kinase 74.8 Troponin I NT-Pro-B Natriuret Pep Total Protein 7.35 Albumin 3.92 Globulin 3.43 Albumin/Globulin Ratio 1.14 Amylase 131.1 H Lipase 959.7 H Procalcitonin D-Dimer Urine Color Urine Clarity Urine pH Ur Specific [place] Urine Protein Urine Glucose (UA) Urine Ketones Urine Blood Urine Nitrite Urine Bilirubin Urine Urobilinogen Ur Leukocyte Esterase Urine Microscopic RBC Urine Microscopic WBC Ur Squamous Epith Cells Hyaline Casts Urine Mucus Stl C. cayetanensis PCR Stool Rotavirus (PCR) Stool Adenovirus (PCR) Stool Astrovirus (PCR) Stool Campylobacter PCR Stl C.difficile Tox PCR Stool Cryptosporidium PCR Stl E.coli Shiga Tox PCR St Sh/Enteroin Ecoli PCR Stl Enterotoxigenic E PCR Stool EPEC (PCR) Stl E. histolytica PCR Stool Giardia Lamblia PCR Stl P. shigelloides PCR Stool Salmonella PCR Stool Sapovirus (PCR) St Y.enterocolitica PCR Stool Vibrio (PCR) Stl Vibrio cholerae PCR Stl Enteroaggr Ecoli PCR Stl Norovirus GI/GII PCR SARS CoV-2 RNA Rapid LOLI 02/22/22 02/22/22 02/22/22 23:04 23:04 23:05 WBC RBC Hgb Hct MCV MCH MCHC RDW Coeff of Daniel Plt Count Immature Gran % (Auto) Neut % (Auto) Lymph % (Auto) [place] % (Auto) Eos % (Auto) Baso % (Auto) Neut # (Auto) Lymph # (Auto) [place] # (Auto) Eos # (Auto) Baso # (Auto) Immature Gran # (Auto) Puncture Site Base Excess O2 Saturation ABG pH ABG pCO2 ABG pO2 ABG HCO3 ABG Total CO2 Trace Test Hemoglobin Oxyhemoglobin Carboxyhemoglobin Total Hemoglobin FiO2 % Sodium Potassium Chloride Carbon Dioxide Anion Gap BUN Creatinine Estimated GFR (MDRD) BUN/Creatinine Ratio Glucose Lactic Acid Calcium Total Bilirubin AST ALT Alkaline Phosphatase Total Creatine Kinase Troponin I NT-Pro-B Natriuret Pep Total Protein Albumin Globulin Albumin/Globulin Ratio Amylase Lipase Procalcitonin 0.42 H D-Dimer 1588.29 H Urine Color Yellow Urine Clarity Clear Urine pH 5.5 Ur Specific [place] 1.025 Urine Protein Negative Urine Glucose (UA) Negative Urine Ketones Negative Urine Blood Negative Urine Nitrite Negative Urine Bilirubin Negative Urine Urobilinogen 0.2 Ur Leukocyte Esterase Trace H Urine Microscopic RBC 0-2 Urine Microscopic WBC 2-5 Ur Squamous Epith Cells 0-2 Hyaline Casts 0-2 Urine Mucus Trace Stl C. cayetanensis PCR Stool Rotavirus (PCR) Stool Adenovirus (PCR) Stool Astrovirus (PCR) Stool Campylobacter PCR Stl C.difficile Tox PCR Stool Cryptosporidium PCR Stl E.coli Shiga Tox PCR St Sh/Enteroin Ecoli PCR Stl Enterotoxigenic E PCR Stool EPEC (PCR) Stl E. histolytica PCR Stool Giardia Lamblia PCR Stl P. shigelloides PCR Stool Salmonella PCR Stool Sapovirus (PCR) St Y.enterocolitica PCR Stool Vibrio (PCR) Stl Vibrio cholerae PCR Stl Enteroaggr Ecoli PCR Stl Norovirus GI/GII PCR SARS CoV-2 RNA Rapid LOLI 02/22/22 02/22/22 02/22/22 23:05 23:10 23:35 WBC RBC Hgb Hct MCV MCH MCHC RDW Coeff of Daniel Plt Count Immature Gran % (Auto) Neut % (Auto) Lymph % (Auto) [place] % (Auto) Eos % (Auto) Baso % (Auto) Neut # (Auto) Lymph # (Auto) [place] # (Auto) Eos # (Auto) Baso # (Auto) Immature Gran # (Auto) Puncture Site [place] Excess -3.7 L O2 Saturation 92.5 L ABG pH 7.42 ABG pCO2 32.0 L ABG pO2 64.0 L ABG HCO3 20.8 L ABG Total CO2 21.8 Trace Test + Hemoglobin 1.1 Oxyhemoglobin 91.4 L Carboxyhemoglobin 1.1 Total Hemoglobin 15.9 FiO2 % 21.0 Sodium Potassium Chloride Carbon Dioxide Anion Gap BUN Creatinine Estimated GFR (MDRD) BUN/Creatinine Ratio Glucose Lactic Acid Calcium Total Bilirubin AST ALT Alkaline Phosphatase Total Creatine Kinase Troponin I NT-Pro-B Natriuret Pep Total Protein Albumin Globulin Albumin/Globulin Ratio Amylase Lipase Procalcitonin D-Dimer Urine Color Urine Clarity Urine pH Ur Specific [place] Urine Protein Urine Glucose (UA) Urine Ketones Urine Blood Urine Nitrite Urine Bilirubin Urine Urobilinogen Ur Leukocyte Esterase Urine Microscopic RBC Urine Microscopic WBC Ur Squamous Epith Cells Hyaline Casts Urine Mucus Stl C. cayetanensis PCR Not detected Stool Rotavirus (PCR) Not detected Stool Adenovirus (PCR) Not detected Stool Astrovirus (PCR) Not detected Stool Campylobacter PCR Not detected Stl C.difficile Tox PCR Not detected Stool Cryptosporidium PCR Not detected Stl E.coli Shiga Tox PCR Not detected St Sh/Enteroin Ecoli PCR Not detected Stl Enterotoxigenic E PCR Not detected Stool EPEC (PCR) Not detected Stl E. histolytica PCR Not detected Stool Giardia Lamblia PCR Not detected Stl P. shigelloides PCR Not detected Stool Salmonella PCR Detected H Stool Sapovirus (PCR) Not detected St Y.enterocolitica PCR Not detected Stool Vibrio (PCR) Not detected Stl Vibrio cholerae PCR Not detected Stl Enteroaggr Ecoli PCR Not detected Stl Norovirus GI/GII PCR Not detected SARS CoV-2 RNA Rapid LOLI Negative 02/23/22 02/23/22 02/23/22 00:27 04:46 04:46 WBC 10.58 H RBC 4.99 Hgb 14.8 Hct 45.1 MCV 90.4 MCH 29.7 MCHC 32.8 RDW Coeff of Daniel 13.4 Plt Count 199 Immature Gran % (Auto) 1.2 Neut % (Auto) 81.6 H Lymph % (Auto) 7.6 L [place] % (Auto) 9.3 Eos % (Auto) 0.0 Baso % (Auto) 0.3 Neut # (Auto) 8.6 H Lymph # (Auto) 0.8 [place] # (Auto) 1.0 Eos # (Auto) 0.0 Baso # (Auto) 0.0 Immature Gran # (Auto) 0.1 Puncture Site Base Excess O2 Saturation ABG pH ABG pCO2 ABG pO2 ABG HCO3 ABG Total CO2 Trace Test Hemoglobin Oxyhemoglobin Carboxyhemoglobin Total Hemoglobin FiO2 % Sodium 133.0 L Potassium 4.30 Chloride 102.5 Carbon Dioxide 22.1 Anion Gap 12.70 BUN 12.4 Creatinine 0.90 Estimated GFR (MDRD) 84.00 BUN/Creatinine Ratio 13.77 Glucose 138.4 H Lactic Acid Calcium 8.58 Total Bilirubin 1.16 AST 95.8 H D ALT 134.3 H Alkaline Phosphatase 212.0 H D Total Creatine Kinase Troponin I NT-Pro-B Natriuret Pep Total Protein 6.86 Albumin 3.66 Globulin 3.20 Albumin/Globulin Ratio 1.14 Amylase 116.1 H Lipase 771.4 H Procalcitonin D-Dimer Urine Color Urine Clarity Urine pH Ur Specific [place] Urine Protein Urine Glucose (UA) Urine Ketones Urine Blood Urine Nitrite Urine Bilirubin Urine Urobilinogen Ur Leukocyte Esterase Urine Microscopic RBC Urine Microscopic WBC Ur Squamous Epith Cells Hyaline Casts Urine Mucus Stl C. cayetanensis PCR Stool Rotavirus (PCR) Stool Adenovirus (PCR) Stool Astrovirus (PCR) Stool Campylobacter PCR Stl C.difficile Tox PCR Stool Cryptosporidium PCR Stl E.coli Shiga Tox PCR St Sh/Enteroin Ecoli PCR Stl Enterotoxigenic E PCR Stool EPEC (PCR) Stl E. histolytica PCR Stool Giardia Lamblia PCR Stl P. shigelloides PCR Stool Salmonella PCR Stool Sapovirus (PCR) St Y.enterocolitica PCR Stool Vibrio (PCR) Stl Vibrio cholerae PCR Stl Enteroaggr Ecoli PCR Stl Norovirus GI/GII PCR SARS CoV-2 RNA Rapid LOLI 02/23/22 02/23/22 02/24/22 04:46 04:46 04:49 WBC 6.99 RBC 4.43 L Hgb 13.4 L Hct 39.6 L MCV 89.4 MCH 30.2 MCHC 33.8 RDW Coeff of Daniel 13.5 Plt Count 182 Immature Gran % (Auto) 1.1 Neut % (Auto) 65.2 Lymph % (Auto) 20.0 [place] % (Auto) 13.0 H Eos % (Auto) 0.3 Baso % (Auto) 0.4 Neut # (Auto) 4.6 Lymph # (Auto) 1.4 [place] # (Auto) 0.9 Eos # (Auto) 0.0 Baso # (Auto) 0.0 Immature Gran # (Auto) 0.1 Puncture Site Base Excess O2 Saturation ABG pH ABG pCO2 ABG pO2 ABG HCO3 ABG Total CO2 Trace Test Hemoglobin Oxyhemoglobin Carboxyhemoglobin Total Hemoglobin FiO2 % Sodium Potassium Chloride Carbon Dioxide Anion Gap BUN Creatinine Estimated GFR (MDRD) BUN/Creatinine Ratio Glucose Lactic Acid Calcium Total Bilirubin AST ALT Alkaline Phosphatase Total Creatine Kinase Troponin I < 0.012 NT-Pro-B Natriuret Pep 102.000 Total Protein Albumin Globulin Albumin/Globulin Ratio Amylase Lipase Procalcitonin D-Dimer Urine Color Urine Clarity Urine pH Ur Specific [place] Urine Protein Urine Glucose (UA) Urine Ketones Urine Blood Urine Nitrite Urine Bilirubin Urine Urobilinogen Ur Leukocyte Esterase Urine Microscopic RBC Urine Microscopic WBC Ur Squamous Epith Cells Hyaline Casts Urine Mucus Stl C. cayetanensis PCR Stool Rotavirus (PCR) Stool Adenovirus (PCR) Stool Astrovirus (PCR) Stool Campylobacter PCR Stl C.difficile Tox PCR Stool Cryptosporidium PCR Stl E.coli Shiga Tox PCR St Sh/Enteroin Ecoli PCR Stl Enterotoxigenic E PCR Stool EPEC (PCR) Stl E. histolytica PCR Stool Giardia Lamblia PCR Stl P. shigelloides PCR Stool Salmonella PCR Stool Sapovirus (PCR) St Y.enterocolitica PCR Stool Vibrio (PCR) Stl Vibrio cholerae PCR Stl Enteroaggr Ecoli PCR Stl Norovirus GI/GII PCR SARS CoV-2 RNA Rapid LOLI 02/24/22 02/25/22 02/25/22 04:49 04:48 04:48 WBC 8.48 RBC 4.43 L Hgb 13.4 L Hct 40.3 L MCV 91.0 MCH 30.2 MCHC 33.3 RDW Coeff of Daniel 13.7 Plt Count 219 Immature Gran % (Auto) 1.8 Neut % (Auto) 66.2 Lymph % (Auto) 23.6 [place] % (Auto) 7.1 Eos % (Auto) 0.8 Baso % (Auto) 0.5 Neut # (Auto) 5.6 Lymph # (Auto) 2.0 [place] # (Auto) 0.6 Eos # (Auto) 0.1 Baso # (Auto) 0.0 Immature Gran # (Auto) 0.2 Puncture Site Base Excess O2 Saturation ABG pH ABG pCO2 ABG pO2 ABG HCO3 ABG Total CO2 Trace Test Hemoglobin Oxyhemoglobin Carboxyhemoglobin Total Hemoglobin FiO2 % Sodium 134.6 137.2 Potassium 3.81 3.79 Chloride 104.2 108.3 H Carbon Dioxide 22.7 21.3 L Anion Gap 11.51 11.39 BUN 11.1 13.6 Creatinine 0.79 0.82 Estimated GFR (MDRD) 98.00 94.00 BUN/Creatinine Ratio 14.05 16.58 Glucose 141.8 H 97.3 Lactic Acid Calcium 8.08 L 8.06 L Total Bilirubin 0.67 0.50 AST 47.4 D 53.3 ALT 84.6 H D 78.5 H Alkaline Phosphatase 131.6 H D 128.7 H Total Creatine Kinase Troponin I NT-Pro-B Natriuret Pep Total Protein 6.01 L 5.96 L Albumin 3.02 L 3.01 L Globulin 2.99 2.95 Albumin/Globulin Ratio 1.01 1.02 Amylase 54.5 D Lipase 314.8 H Procalcitonin D-Dimer Urine Color Urine Clarity Urine pH Ur Specific [place] Urine Protein Urine Glucose (UA) Urine Ketones Urine Blood Urine Nitrite Urine Bilirubin Urine Urobilinogen Ur Leukocyte Esterase Urine Microscopic RBC Urine Microscopic WBC Ur Squamous Epith Cells Hyaline Casts Urine Mucus Stl C. cayetanensis PCR Stool Rotavirus (PCR) Stool Adenovirus (PCR) Stool Astrovirus (PCR) Stool Campylobacter PCR Stl C.difficile Tox PCR Stool Cryptosporidium PCR Stl E.coli Shiga Tox PCR St Sh/Enteroin Ecoli PCR Stl Enterotoxigenic E PCR Stool EPEC (PCR) Stl E. histolytica PCR Stool Giardia Lamblia PCR Stl P. shigelloides PCR Stool Salmonella PCR Stool Sapovirus (PCR) St Y.enterocolitica PCR Stool Vibrio (PCR) Stl Vibrio cholerae PCR Stl Enteroaggr Ecoli PCR Stl Norovirus GI/GII PCR SARS CoV-[address] abd/pel - IMPRESSION: 1. Mild descending colitis. No bowel obstruction or dilation. 2. Enlarged fatty liver. 3. Mild splenomegaly. 4. Atherosclerosis with coronary calcifications. CT chest - Impression: 1. No evidence of pulmonary artery thrombus. Borderline technical adequacy. The main and first order branching is relatively well visualized. 2. Mild emphysema 3. Pericolonic inflammation suggested in the upper abdomen. Education Provided to Patient and Family: Per clinical staff rn Follow-ups: Dr. Short in a few days. Discharge Disposition: Home Hospital Course: Admit with abdominal pain and cramping with diarrhea. Source found to be a salmonella infection, responded well to levaquin. Mild pancreatitis developed as well, resolved slowly. Sinus tachycardia noted, seen by Dr. Short, suggested cardizem 30 mg bid, ECHO done on day of d/c. Plan: Home for rest. Finish levaquin for one week total tx. Cardizem 30 mg bid to replace lisinopril. F/U Dr. Short next week. This discharge performed with a [id number] exam and documentation requiring 45 minutes in total.
--- NOTE | 2022-02-25 12:52 | ECHO2D ---
Date of Exam: 02/24/2022 Ordering Physician: HOSPITALIST/DR. JESSICA BRODERICK Room #: 104 Reason for Echo: TACHYCARDIA, SHORT OF AIR M-Mode Normal Adult Results LV Dimensions Normal Adult Results AoV Opening excursions >1.6 >1.6 LVEDD-base- 3.5-5.8 5.2 Ao root dimensions 2.0-3.7 3.8 LVESD-base- 3.1-4.6 L. Atrium dimensions 1.9-3.8 5.5 Post. Wall thickness 0.8-1.1 1.3 IV septum (thickness) 0.7-1.2 1.4 Post. Wall excursion 0.72-1.3 NORMAL Septal motion NORMAL Systolic motion R. Ventricular cavity 1.5-2.0 4.0 LVEF 60% 50% Paradoxical septal wall motion NORMAL 2-D : 2-D M Mode Echocardiogram was performed using apical four chamber and left parasternal long and short axis views. Mitral, tricuspid and aortic valves appear to be normal. Contractility of the left ventricle seems to be normal, so is the cavity size. ENLARGED LEFT ATRIAL CAVITY AND RIGHT VENTRICLE CAVITY. Aortic root appears to be normal. There is no pericardial effusion. There is no thrombus noted in the left ventricle or left atrial cavity. M-MODE: MV: NORMAL AV: NORMAL TV: NORMAL PV: CHAMBER SIZE: ENLARGED LEFT ATRIAL AND RIGHT VENTRICLE CAVITIES WALL MOTION: NORMAL PERICARDIUM: NORMAL INTERPRETATION: 1. LEFT VENTRICLE HYPERTROPHY WITH ENLARGED LEFT ATRIAL CAVITY 2. ENLARGED RIGHT VENTRICLE CAVITY 3. NORMAL LEFT VENTRICLE CONTRACTILITY AND LEFT VENTRICLE SIZE MTDD
--- NOTE | 2022-03-01 09:49 | CONS ---
DATE OF SERVICE: 02/24/22 CONSULT FOLLOWUP SUBJECTIVE: 67 year old white male seen in the consultation for sinus tachycardia. The patient's heart rate is 80 per minute average, it is not tachycardic anymore. He is feeling a lot better. His infection int he intestine and pancreatitis seems to have resolved. REVIEW OF SYSTEMS: CONSTITUTIONAL: No night sweats. No fatigue, malaise, lethargy. No fever or chills. HEENT: Eyes: No visual changes. No eye pain. No eye discharge. ENT: No runny nose. No epistaxis. No sinus pain. No sore throat. No odynophagia. No ear pain. No congestion. RESPIRATORY: No cough, no congestion. No hemoptysis. CARDIOVASCULAR: No angina symptoms. No CHF symptoms. No atypical chest pain for CAD. No palpitations. No shortness of breath. GASTROINTESTINAL: No abdominal pain. No nausea or vomiting. No diarrhea or constipation. No hematemesis. No hematochezia. GENITOURINARY: No urgency. No frequency. No dysuria. No hematuria. No obstructive symptoms. No discharge. No pain. No significant abnormal bleeding. MUSCULOSKELETAL: No musculoskeletal pain. No joint swelling. No arthritis. NEUROLOGICAL: No headache. No neck pain. No syncope. No seizures. No dizziness. PSYCHIATRIC: Not anxious. No depression. No suicidal thoughts. No homicidal thoughts. SKIN: No rash. No lesions. No wounds. ENDOCRINE: No unexplained weight loss. No weight gain. HEMATOLOGIC/LYMPHATIC: No anemia. No purpura. No petechiae. No prolonged or excessive bleeding. No palpable lymph nodes. PHYSICAL EXAMINATION: GENERAL: The patient is oriented to time, place and person. HEENT: Head normocephalic, atraumatic. Eyes: Extraocular muscles are intact. Pupils are equal, round and reactive to light and accommodation. Ears: No lesions. Nose appeared normal. Throat: No exudate or erythema. NECK: Supple. No JVD, no carotid bruit. No lymphadenopathy or thyromegaly. LUNGS: Clear to auscultation. Percussion note normal. Chest symmetrical. HEART: S1, S2, no S3. No murmur. No cyanosis or clubbing. No ascites. Pulses: Dorsalis pedis and posterior tibial pulses +1 to +2 bilaterally. ABDOMEN: Soft. Nontender. Bowel sounds active. No CVA tenderness. No mass felt. EXTREMITIES: Trace edema noted. Full range of motion of all extremities, equal. NEUROLOGIC: No focal deficit. Cranial nerves II through XII are grossly intact. No headache, no double vision or headache. SKIN: Not dry. Intact. Turgor - normal. LYMPHATIC: No palpable lymph nodes/no lymphedema. MUSCULOSKELETAL: Normal joints with no swelling. Muscle tone is normal. LABS: Telemetry strips examined sinus rhythm, rate average 80per minute. ASSESSMENT: 1. Sinus tachycardia, resolved 2. No evidence of CHF or coronary insufficiency. The patient's sinus tachycardia was from his illness that persisted for 7-10 days. 3. Salmonellosis with pancreatitis RECOMMENDATIONS: 1. The patient was on 60mg Cardizem twice a day. His blood pressure systolic was between 90-100s so we will decrease the Cardizem dose to 30mg twice a day. The patient is off Lisinopril MTDD
--- NOTE | 2022-03-01 14:21 | CONS ---
ADMISSION DAY: Consultation REST OF THEM: Intermediate 02/25/22: Final day of consult which was extensive. TALA
--- NOTE | 2022-03-01 14:21 | CONS ---
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 The patient's liver profile is practically normal. He is feeling a lot better. He is up and about walking around. His pulse is around 70-90 per minute which is acceptable and systolic 128. REVIEW OF SYSTEMS: CONSTITUTIONAL: No night sweats. No fatigue, malaise, lethargy. No fever or chills. HEENT: Eyes: No visual changes. No eye pain. No eye discharge. ENT: No runny nose. No epistaxis. No sinus pain. No sore throat. No odynophagia. No ear pain. No congestion. RESPIRATORY: No cough, no congestion. No hemoptysis. CARDIOVASCULAR: No angina symptoms. No CHF symptoms. No atypical chest pain for CAD. No palpitations. No shortness of breath. GASTROINTESTINAL: No abdominal pain. No nausea or vomiting. No diarrhea or constipation. No hematemesis. No hematochezia. GENITOURINARY: No urgency. No frequency. No dysuria. No hematuria. No obstructive symptoms. No discharge. No pain. No significant abnormal bleeding. MUSCULOSKELETAL: No musculoskeletal pain. No joint swelling. No arthritis. NEUROLOGICAL: No headache. No neck pain. No syncope. No seizures. No dizziness. PSYCHIATRIC: Not anxious. No depression. No suicidal thoughts. No homicidal thoughts. SKIN: No rash. No lesions. No wounds. ENDOCRINE: No unexplained weight loss. No weight gain. HEMATOLOGIC/LYMPHATIC: No anemia. No purpura. No petechiae. No prolonged or excessive bleeding. No palpable lymph nodes. PHYSICAL EXAMINATION: GENERAL: The patient is oriented to time, place and person. VITAL SIGNS: Temperature 98.1, pulse 75, respiratory rate 18, blood pressure 98/64 and pulse ox 96%. HEENT: Head normocephalic, atraumatic. Eyes: Extraocular muscles are intact. Pupils are equal, round and reactive to light and accommodation. Ears: No lesions. Nose appeared normal. Throat: No exudate or erythema. NECK: Supple. No JVD, no carotid bruit. No lymphadenopathy or thyromegaly. LUNGS:Decreased breath sounds but clear to auscultation. Percussion note normal. Chest symmetrical. HEART: S1, S2, no S3. No murmur. No cyanosis or clubbing. No ascites. Pulses: Dorsalis pedis and posterior tibial pulses +1 to +2 bilaterally. ABDOMEN: Soft. Nontender. Bowel sounds active. No CVA tenderness. No mass felt. EXTREMITIES: No edema. Full range of motion of all extremities, equal. NEUROLOGIC: No focal deficit. Cranial nerves II through XII are grossly intact. No headache, no double vision or headache. SKIN: Not dry. Intact. Turgor - normal. LYMPHATIC: No palpable lymph nodes/no lymphedema. MUSCULOSKELETAL: Normal joints with no swelling. Muscle tone is normal. LABS: Hgb 13.4, hct 40,W BC 8,400 normal differential, creatinine 0.8, BUN 8, potassium 3.7. ASSESSMENT: 1. Sinus tachycardia was cause of consultation which has resolved 2. Pancreatitis and enteritis seems to be under control RECOMMENDATIONS: 1. Discharge the patient home 2. Morbidly obese and advised to lose weight, diet discussed 3. Advised to go on low fat diet. 4. Salmonellosis discussed 5. Sinus tachycardia has resolved secondary to illness for 7-10 days. The patient is on Cardizem 30mg twice a day and going to be discharged on it. 6. Advised not to take Lisinopril. 7. The patient is going to be on antibiotics for salmonellosis, Levaquin for another 3-4 days Case discussed with Dr. De Leon. CONDITION:Stable ADDENDUM: The patient's echocardiogram was done which showed LVH with enlarged LA cavity, normal left ventricular function and enlarged RV cavity. The patient's PFT showed mild restrictive lung disease. The patient's problem is inactivity, sedentary lifestyle and morbid obesity with several risk factors for coronary artery heart disease, all discussed with the patient in detail. TALA
== END 2022-02-25 14:00 | disposition home or self-care (01) | DRG 371 ==
LOC: ED 22:03 → MEDSURG A 02-23 01:39
PROVIDERS: ADMIT Internal Medicine Geriatric Medicine; ATTEND Emergency Medicine
DX: Z20.822 Contact with and (suspected) exposure to COVID-19; K85.00 Idiopathic acute pancreatitis without necrosis or infection; I10 Essential (primary) hypertension; M15.9 Polyosteoarthritis, unspecified; Z79.899 Other long term (current) drug therapy; A02.0 Salmonella enteritis; Z68.41 Body mass index [BMI] 40.0-44.9, adult; Z51.81 Encounter for therapeutic drug level monitoring; E78.5 Hyperlipidemia, unspecified; R00.0 Tachycardia, unspecified; K85.90 Acute pancreatitis without necrosis or infection, unspecified; R19.7 Diarrhea, unspecified; E66.01 Morbid (severe) obesity due to excess calories